=== PATIENT | female | born 1965 | race Caucasian/White ===

== ENCOUNTER 2016-12-26 07:13 | Emergency (ER) | payer SELFPAY ==
[2016-12-26 08:48] VITALS: BP 137/87
== END 2016-12-26 08:48 | disposition home or self-care (01) ==
LOC: ED 07:13
DX: J02.9 Acute pharyngitis, unspecified (principal); R03.0 Elevated blood-pressure reading, without diagnosis of hypertension; Z88.0 Allergy status to penicillin; Z72.89 Other problems related to lifestyle

== ENCOUNTER 2016-12-31 08:48 | Emergency (ER) | payer SELFPAY | END 2016-12-31 09:10 | disposition left against medical advice (07) | LOC: ED 08:48 | DX: Z53.21 Procedure and treatment not carried out due to patient leaving prior to being seen by health care provider (principal) ==

== ENCOUNTER 2017-01-01 00:49 | Emergency (ER) | payer SELFPAY ==
[2017-01-01 02:38] VITALS: BP 119/55
== END 2017-01-01 02:38 | disposition home or self-care (01) ==
LOC: ED 00:49
DX: S90.822A Blister (nonthermal), left foot, initial encounter (principal); S90.821A Blister (nonthermal), right foot, initial encounter; Z88.0 Allergy status to penicillin; X58.XXXA Exposure to other specified factors, initial encounter; Y93.89 Activity, other specified; Y99.8 Other external cause status; Y92.89 Other specified places as the place of occurrence of the external cause
CPT/HCPCS: J1885

== ENCOUNTER 2017-01-01 07:04 | Emergency (ER) | payer SELFPAY ==
[~2017-01-01] VITALS: Ht 167.6 cm; Wt 81.6 kg
[2017-01-01 08:03] LABS: CALCIUM 9.2 mg/dL (8.5-10.1); CARBON DIOXIDE 27.8 mmol/L (21-32); CHLORIDE SERUM 105 mmol/L (98-107); CREATININE SERUM 0.9 mg/dL (0.6-1.0); GFR1 > 60 mL/min; GLUCOSE SERUM 99 mg/dL (74-106); POTASSIUM SERUM 3.5 mmol/L (3.5-5.1); SODIUM SERUM 141 mmol/L (136-145)
[2017-01-01 08:07] LABS: ALKALINE PHOSPHATASE 96 U/L (46-116); ALT/SGPT 17 U/L (14-59); AST/SGOT 18 U/L (15-37); BILIRUBIN TOTAL 0.31 mg/dL (0.20-1.00); CHOLESTEROL 182 mg/dL (<200); LIPASE 515 IU/L (73-393); TOTAL PROTEIN, SERUM 7.2 g/dL (6.4-8.2); TRIGLYCERIDES 66 mg/dL (<150)
[2017-01-01 08:08] LABS: ALBUMIN 3.1 g/dL (3.4-5.0); CHOLESTEROL/HDL RATIO 1.5; HDL CHOLESTEROL 119 mg/dL (40-60)
[2017-01-01 08:10] LABS: PLATELET COUNT 190 x10^3mcL (130-400)
[2017-01-01 08:13] LABS: RED CELL DISTRIBUTION WIDTH 22.9 % (11.5-14.5)
[2017-01-01 08:14] LABS: FREE T4 0.96 ng/dL (0.76-1.46); FREE THYROXINE INDEX 2.8 ug/dL (1.4-4.5); T4(THYROXINE) 8.1 ug/dL (4.7-13.3)
[2017-01-01 08:17] LABS: T3 TOTAL 1.36 ng/mL
[2017-01-01 08:18] LABS: AMPHETAMINE QUAL UR NONE DETECTED (NEG <=1000)
[2017-01-01 08:20] LABS: UA SPECIFIC GRAVITY 1.025 (1.005-1.035); microscopic required? YES; urine erythrocyte 1+ (NEGATIVE)
[2017-01-01 11:41] LABS: BAND NEUTROPHIL 0 % (0-10); BASOPHIL 0 % (0-2); MONOCYTE 5 % (0-7); SEGMENTED NEUTROPHILS 75 % (37-75)
[2017-01-01 11:42] LABS: PLATELET MORPHOLOGY PLATELETS DECREASED; rbc morphology (normal/abnorm) ABNORMAL (NORMAL)
[2017-01-01 13:38] VITALS: BP 129/85
== END 2017-01-01 13:30 | disposition home or self-care (01) ==
LOC: ED 07:04
PROVIDERS: Specialist
DX: K85.90 Acute pancreatitis without necrosis or infection, unspecified (principal); F10.20 Alcohol dependence, uncomplicated; E66.9 Obesity, unspecified
CPT/HCPCS: 80307; 83880; 84439; G0480; J1885; Q0092

== ENCOUNTER 2017-01-10 23:13 | Emergency (ER) | payer OTHER | END 2017-01-11 01:30 | disposition other institution (70) | LOC: ED 23:13 | DX: Z02.89 Encounter for other administrative examinations (principal) ==

== ENCOUNTER 2017-01-10 23:13 | Emergency (ER) | payer SELFPAY ==
[2017-01-11 01:51] VITALS: BP 102/66
== END 2017-01-11 01:30 | disposition other institution (70) ==
LOC: ED 23:13
DX: S61.210A Laceration without foreign body of right index finger without damage to nail, initial encounter (principal); R03.0 Elevated blood-pressure reading, without diagnosis of hypertension; W25.XXXA Contact with sharp glass, initial encounter; Y93.89 Activity, other specified; Y92.89 Other specified places as the place of occurrence of the external cause; Y99.8 Other external cause status
CPT/HCPCS: 90715; J2001

== ENCOUNTER 2017-03-22 19:41 | Emergency (ER) | payer MEDICAID ==
[2017-03-22 21:30] LABS: BASOPHIL % 0.4 % (0-2); PLATELET COUNT 387 x10^3mcL (130-400)
[2017-03-22 21:37] LABS: CALCIUM 8.8 mg/dL (8.5-10.1); CARBON DIOXIDE 24.9 mmol/L (21-32); CREATININE SERUM 1.1 mg/dL (0.6-1.0)
[2017-03-22 21:40] LABS: BILIRUBIN TOTAL 0.2 mg/dL (0.20-1.00); TOTAL PROTEIN, SERUM 7.5 g/dL (6.4-8.2)
[2017-03-22 21:41] LABS: ALBUMIN 3.2 g/dL (3.4-5.0); RED CELL DISTRIBUTION WIDTH 25.2 % (11.5-14.5)
[2017-03-22 22:09] LABS: rbc morphology (normal/abnorm) ABNORMAL (NORMAL)
[2017-03-22 22:57] VITALS: BP 134/65
== END 2017-03-22 22:57 | disposition home or self-care (01) ==
LOC: ED 19:41
PROVIDERS: Emergency Medicine
DX: K52.9 Noninfective gastroenteritis and colitis, unspecified (principal)
CPT/HCPCS: 83880; J0780; J2405; J7030

== ENCOUNTER 2017-04-17 12:31 | Emergency (ER) | payer MEDICAID ==
[~2017-04-17] VITALS: Ht 167.6 cm; Wt 77.1 kg
[2017-04-17 15:07] LABS: BASOPHIL % 0.8 % (0-2)
[2017-04-17 15:13] LABS: CARBON DIOXIDE 24.6 mmol/L (21-32); CHLORIDE SERUM 103 mmol/L (98-107); CREATININE SERUM 0.9 mg/dL (0.6-1.0); GFR1 > 60 mL/min; GLUCOSE SERUM 101 mg/dL (74-106); POTASSIUM SERUM 3.9 mmol/L (3.5-5.1); SODIUM SERUM 141 mmol/L (136-145)
[2017-04-17 15:16] LABS: PLATELET COUNT 552 x10^3mcL (130-400); RED CELL DISTRIBUTION WIDTH 23.7 % (11.5-14.5)
[2017-04-17 15:17] LABS: ALBUMIN 3.7 g/dL (3.4-5.0); ALKALINE PHOSPHATASE 100 U/L (46-116); ALT/SGPT 30 U/L (14-59); AMYLASE 43 U/L (25-115); AST/SGOT 24 U/L (15-37); BILIRUBIN TOTAL 0.1 mg/dL (0.20-1.00); LIPASE 231 IU/L (73-393)
[2017-04-17 15:18] LABS: TOTAL PROTEIN, SERUM 8.3 g/dL (6.4-8.2)
[2017-04-17 15:20] LABS: UA SPECIFIC GRAVITY <=1.005 (1.005-1.035); microscopic required? YES; urine erythrocyte NEGATIVE (NEGATIVE)
[2017-04-17 16:03] LABS: AMPHETAMINE QUAL UR NONE DETECTED (NEG <=1000)
[2017-04-17] MEDS ORDERED: ABILIFY20 M1 PO (17:54)
[2017-04-17] MEDS ORDERED: PEPCID20 MG PO (17:56)
[2017-04-17] MEDS ORDERED: EPZICOM1 TAB (17:56)
[2017-04-17 18:23] VITALS: BP 112/72
== END 2017-04-17 18:24 | disposition home or self-care (01) ==
LOC: ED 12:31
PROVIDERS: Emergency Medicine
DX: R10.31 Right lower quadrant pain (principal); D25.9 Leiomyoma of uterus, unspecified; F10.20 Alcohol dependence, uncomplicated
CPT/HCPCS: 83880; G0480; J2405; J3010; J7030; Q9967

== ENCOUNTER 2017-04-30 02:02 | Inpatient (IN) | payer MEDICAID ==
[~2017-04-30] VITALS: Ht 167.6 cm; Wt 83.0 kg
[~2017-04-30 02:02] MED LIST: ABILIFY20 M1 PO; EPZICOM1 TAB; PEPCID20 MG PO
--- NOTE | 2017-04-30 02:30 | NUR ---
PT IN BED AWAKE ALERT, STS DOES NOT WANT TO GIVE URINE SAMPLE AT THIS TIME. WILL CHECK BACK
[2017-04-30 03:10] LABS: CALCIUM 8.5 mg/dL (8.5-10.1); CARBON DIOXIDE 21.1 mmol/L (21-32); CHLORIDE SERUM 108 mmol/L (98-107); GFR1 > 60 mL/min; GLUCOSE SERUM 105 mg/dL (74-106); POTASSIUM SERUM 3.7 mmol/L (3.5-5.1); SODIUM SERUM 142 mmol/L (136-145)
[2017-04-30 03:12] LABS: BASOPHIL % 0.2 % (0-2); PLATELET COUNT 223 x10^3mcL (130-400)
[2017-04-30 03:14] LABS: RED CELL DISTRIBUTION WIDTH 22.5 % (11.5-14.5)
[2017-04-30 03:15] LABS: ALKALINE PHOSPHATASE 110 U/L (46-116); ALT/SGPT 28 U/L (14-59); AST/SGOT 39 U/L (15-37); BILIRUBIN TOTAL 0.18 mg/dL (0.20-1.00)
[2017-04-30 03:17] LABS: ALBUMIN 3.1 g/dL (3.4-5.0)
--- NOTE | 2017-04-30 03:25 | NUR ---
PT BIBA: PER MEDIC PT CALLED SUICIDE HOTLINE AND REPORTED SHE WANTED TO KILL HERSELF. PD PLACED PT ON 5150 HOLD; FORM PLACED IN PT'S CHART. PER MEDIC PT STS SHE HAD BEEN DRINKING; BS WAS 112 ON SCENE. WHE ASKED IF PT WANTED TO HURT HERSELF, PT RESPONDED "I JUST HATE LIVING LIKE THIS, I HATE BEING HOMELESS, I JUST DON'T WANT TO WAKE UP, EVER." WHEN ASKED IF PT HAD A PLAN, PT SHOOK HEAD SIDE TO SIDE INDICATING NO. PT AWAKE ALERT, RESP E/U AT THIS TIME
[2017-04-30 03:42] LABS: rbc morphology (normal/abnorm) ABNORMAL (NORMAL)
--- NOTE | 2017-04-30 04:19 | NUR ---
PT IN BED IN POSITION OF COMFORT, RESP E/U, WITHIN FULL VIEW OF NURSES' STATION
--- NOTE | 2017-04-30 04:55 | NUR ---
PT AMBULATED TO RESTROOM WITH STEADY GAIT. PT AWAKE ALERT, RESP E/U, STS NO PAIN AT THIS TIME
[2017-04-30 05:21] LABS: AMPHETAMINE QUAL UR NONE DETECTED (NEG <=1000)
--- NOTE | 2017-04-30 06:20 | NUR ---
PT IN BED WITH EYES CLOSED, EVEN CHEST RISE AND FALL, NAD NOTED
--- NOTE | 2017-04-30 07:18 | NUR ---
REPORT TAKEN FROM SAMIA AGUILAR TO ASSUME CARE OF PT. UPON ENTERING THE ROOM PT IS SLEEPING ON GURNEY IN A POSITION OF COMFORT. PT OFFERED AM CARE AND BASIN PLACED AT BEDSIDE. DIET ORDERED FOR PT. PT STS NO FURTHER REQUEST AT THIS TIME. PT REMAINS ON CM WITH CALL LIGHT IN REACH. PT IN VIEW OF THE NURSES STATION WILL CONTINUE TO MONITOR.
--- NOTE | 2017-04-30 07:23 | NUR ---
PTS BELONGINGS TAKEN FROM BEDSIDE AND PLACED IN SHOWER ROOM.
--- NOTE | 2017-04-30 07:43 | NUR ---
BREAKFAST TRAY PLACED AT BEDSIDE.
--- NOTE | 2017-04-30 09:07 | NUR ---
PT IS SLEEPING ON GURNEY IN POSITON OF COMFORT. PT WOKEN UP AND ASKED IF SHE WOULD LIKE HER BREAKFAST, PT STS NOT AT THIS TIME. PT STS SHE WOULD LIKE SOMETHING FOR ALCOHOL WITHDRAWL. SHE IS FEELING SHAKY AND ANXIOUS. DR. GARCIA MADE AWARE. PT REMAINS ON CM WITH CALL LIGHT IN REACH AND IN VIEW OF THE NURSES STATION.
--- NOTE | 2017-04-30 09:43 | NUR ---
PT SLEEPING ON GURNEY IN A POSITION OF COMFORT. PT REMAINS ON MONITOR WITH CALL LIGHT IN REACH. PT IN VIEW OF THE NURSES STATION, WILL CONTINUE TO MONITOR
--- NOTE | 2017-04-30 11:25 | NUR ---
PT IS SITTING UP AT THIS TIME EATING BREAKFAST TRAY. PT REQUEST CUP OF WATER. PT PROVIDED WITH WATER. PT ON CM IN VIEW OF NURSING STATION. WILL CONTINUE TO MONITOR.
--- NOTE | 2017-04-30 11:53 | NUR ---
PT ATE ALL BREAKFAST. TRAY REMOVED. PT REMAINS ON CM MONITOR IN VIEW OF NURSING STATION. WILL CONTINUE TO MONITOR PT.
--- NOTE | 2017-04-30 12:49 | NUR ---
PT PROVIDED WITH LUNCH TRAY AT BEDSIDE.
--- NOTE | 2017-04-30 13:20 | NUR ---
TELE PSYCH SET UP IN ROOM FOR PT PER DR RADHA LYNN.
--- NOTE | 2017-04-30 13:21 | NUR ---
SPOKE TO PT IN REGARDS TO SI. PT STS SHE IS STILL EXPERIENCING SUICIDAL THOUGHTS. PT ASKED ABOUT A PLAN AND PT STS I WAS GOING TO JUST TAKE A BUNCH OF MY PILLS. PT STS IM SICK OF LIVING ON THE STREET, THE DIRT AND BEING SCARED AT NIGHT. PT REMAINS ON RESIDENTIAL PROGRAM DIRECTOR IN VIEW OF THE NURSES STATION WITH CALL LIGHT IN REACH.
--- NOTE | 2017-04-30 13:42 | NUR ---
SPOKE TO DR PIPER SPECIALIST CLERICAL PRODUCTION WORKER GAVE REPORT ON PT FOR TELE PSYCH.
--- NOTE | 2017-04-30 14:08 | NUR ---
PT AMBULATORY TO RESTROOM AND BACK WITHOUT INCIDENT.
[2017-04-30] MEDS ORDERED: MOTRIN (15:13)
--- NOTE | 2017-04-30 15:18 | NUR ---
PT IS RESTING ON GURNEY COMFORTABLY. PT ATE LUNCH. PT IS ON CM AND IN VIEW OF NURSING STATION. WILL CONTINUE TO MONITOR PT.
--- NOTE | 2017-04-30 15:24 | NUR ---
REPORT GIVEN TO ANDREA AGUILAR TO ASSUME CARE OF PT PTS PRIMARY NURSE
--- NOTE | 2017-04-30 16:00 | NUR ---
PT'S OWN MEDICATION WAS SENT TO PHARMACY FOR HOLD. MOTRIN 600 MG. 11 TABS
[2017-04-30 16:40] VITALS: BP 140/85
--- NOTE | 2017-04-30 16:49 | NUR ---
REC'D AAOX4, SPEECH CLEAR. C/O FATOUMATA FEET/TOE PAIN FROM WALKING. ON RA, NO SOB NOTED. AMBULATORY WITH STEADY GAIT. PT VERBALIZED SUICIDAL IDEATION, SITTER AT THE BEDSIDE. ATTACHED TELE 8. NSR. IV SITE WNL. ORIENTED TO ROOM AND SURROUNDINGS. CALL LIGHT WITHIN REACH, PROVIDED REPORT TO ANDERA AGUILAR FOR CONTINUITY OF CARE.
[2017-04-30 17:07] LABS: PHOSPHOROUS 3.4 mg/dL (2.5-4.9)
[2017-04-30 17:08] LABS: CHOLESTEROL/HDL RATIO 1.6
[2017-04-30 17:10] LABS: UA SPECIFIC GRAVITY >=1.030 (1.005-1.035); microscopic required? YES; urine erythrocyte NEGATIVE (NEGATIVE)
[2017-04-30 17:22] LABS: IRON 77 ug/dL (50-170); TOTAL IRON BINDING CAPACITY 368 ug/dL (250-450)
[2017-04-30 17:23] LABS: T3 TOTAL 0.98 ng/mL
[2017-04-30 17:26] LABS: RED BLOOD CELLS 3.55 M/mm3 (4.10-5.10)
[2017-04-30 17:28] LABS: FREE T4 0.86 ng/dL (0.76-1.46); T4(THYROXINE) 5.9 ug/dL (4.7-13.3)
--- NOTE | 2017-04-30 17:41 | NUR ---
PT UNDER CLOSE OBSERVATION. PRN PAIN MED GIVEN COVEAGE. WILL CONTINUE TO MONITOR
--- NOTE | 2017-04-30 18:54 | NUR ---
PT ON BED, EATING DINNER. NO COMPLAINT OF N/V. WILL CONTINUE TO MONITOR
--- NOTE | 2017-04-30 19:41 | NUR ---
SHIFT REASSESSMENT DONE.PATIENT ALERT,5150,SITTER AT BEDSIDE.SEEN BY DR WATKINS,PSYCH.BREATHING EASY.GEN WEAKNESS.NS AT 20 CC/ HOUR.IV SITE SECURED LAC.TELE 8 SR.REDNESS TO FEET NOTED ON ADMIT.VOIDING BUT C/O BURNING,ENCOURAGED INCREASE PO INTAKE,FLUID.SCD ORDERED.UDS + BENZO.,CALL LIGHT IN REACH.
--- NOTE | 2017-04-30 22:59 | NUR ---
POISON CONTROL CALLED,UPDATED REGARDING PATIENT LATEST.1 TO I SITTER FOR SAFETY.CALL LIGHT IN REACH.
--- NOTE | 2017-05-01 03:42 | NUR ---
CHECKED AT INTERVALS FOR NEEDS AND SAFETY.SLEEPING COMFORTABLY.NS AT 20 CC/ HOUR.
[2017-05-01 05:00] VITALS: BP 127/82
--- NOTE | 2017-05-01 05:59 | NUR ---
PATIENT UP RESTROOM,VOIDED.AM CARE GIVEN.ASSIST PRN.NS AT 20 CC/ HOUR.SITTER AT BEDSIDE FOR SAFETY.WILL CONTINUE PLAN OF CARE.CALL LIGHT IN REACH.
[2017-05-01 06:21] LABS: PLATELET COUNT 178 x10^3mcL (130-400)
[2017-05-01 06:40] LABS: CALCIUM 8.5 mg/dL (8.5-10.1); CARBON DIOXIDE 24.5 mmol/L (21-32); CHLORIDE SERUM 108 mmol/L (98-107); CREATININE SERUM 0.7 mg/dL (0.6-1.0); GFR1 > 60 mL/min; GLUCOSE SERUM 89 mg/dL (74-106); POTASSIUM SERUM 4.1 mmol/L (3.5-5.1); SODIUM SERUM 141 mmol/L (136-145)
[2017-05-01 07:10] LABS: BASOPHIL % 0 % (0-2); RED CELL DISTRIBUTION WIDTH 21.7 % (11.5-14.5)
[2017-05-01 08:06] LABS: rbc morphology (normal/abnorm) ABNORMAL (NORMAL)
--- NOTE | 2017-05-01 09:00 | NUR ---
PT ON BED, AWAKE, ALERT, AND ORIENTED. HAS NO COMPLAINT OF PAIN, SOB, OR DIZZINESS. RESPONDS WELL TO QUESTION AND ANSWER. CLEAR FATOUMATA LUNG FIELD, SYMMETRICAL CHEST EXPANSION AND UNLABORED. ACTIVE BOWEL SOUNDS NOTED. NON DISTENDED ABDOMEN. PT STATES SHE HAS PLANS TO HURT HERSELF IF SHE GOES BACK TO THE STREET. BUT HAS NO CURRENT IMMEDIATE PLANS AT THIS TIME. WILL CONTINUE TO MONITOR
[2017-05-01 09:30] VITALS: BP 120/84
--- NOTE | 2017-05-01 12:00 | NUR ---
PT'S ACCUCHECK SHOWED 102. NO COVERAGE NEEDED
[2017-05-01 14:00] VITALS: BP 130/87
--- NOTE | 2017-05-01 17:31 | NUR ---
PT ON BED, AWAKE, ALERT, AND ORIENTED. PT'S ACCUCHECK SHOWED 107.NO COVERAGE NEEDED
[2017-05-01 18:17] VITALS: BP 144/96
--- NOTE | 2017-05-01 19:50 | NUR ---
PT. AWAKE, ALERT, ORIENTED X4. ABLE TO FOLLOW COMMANDS. DENIES HEADACHE OR DIZZINESS. BREATH SOUNDS CLEAR THROUGHOUT LUNG ELY, RESP. EVEN, UNLABORED. NO SOB NOTED. DENIES CHESTPAIN OR DISCOMFORT. PT. COOPERATIVE W/ CARE. DENIES SUICIDAL IDEATION PRESENTLY. 1:1 SITTER AT BEDSIDE. ABD. SOFT AND ROUND, DENIES ABD. PAIN, DENIES NAUSEA. BLE FEET W/ SOME REDNESS. PEDAL PULSES STRONG FATOUMATA. IVF INFUSING WELL, SITE WNL. CALL LIGHT WITHIN REACH.
[2017-05-01 21:17] VITALS: BP 135/88
--- NOTE | 2017-05-02 02:26 | NUR ---
IV CATH ACCIDENTLY PUKED OUT, CATH INTACT, NEW 22 GAUGE INSERTED TO RT. HAND. GOOD BLOOD RETURN AND FLUSHING WELL.
[2017-05-02 10:00] VITALS: BP 138/87
--- NOTE | 2017-05-02 12:30 | NUR ---
PT'S ACCUCHECK SHOWED 109. NO COVERAGE NEEDED
[2017-05-02 14:03] VITALS: BP 145/92
[2017-05-02 15:13] VITALS: Ht 167.6 cm; Wt 83.0 kg
--- NOTE | 2017-05-02 17:28 | NUR ---
PT'S ACCUCHECK SHOWED 94. NO COVERAGE NEEDED. WILL CONTINUE TO MONITOR. PT DENIES SUICIDAL IDEATION
[2017-05-02 17:55] VITALS: BP 166/97
--- NOTE | 2017-05-02 20:00 | NUR ---
PT A/A/O X4. DENIES ANY SUICIDE IDEATION THUS FAR. PT STATED "IM NOT PLANNING HURTING MYSELF COZ THINGS ARE LOOKING UP." DENIES DIZZINESS AND HEADACHE. BREATH SOUNDS CLEAR. BREATHING EVEN AND UNLABORED ON ROOM AIR. DENIES CHEST PAIN AND PRESSURE. BOWEL SOUNDS ACTIVE. NO C/O N/V AND ABD PAIN. IV INTACT ON THE RIGHT HAND INFUSING WITH NS AT 20 ML/HR. MADE PT COMFORTABLE. PLACED CALL LIGHT WITH IN REACH. WILL CONTINUE TO MONITOR.
[2017-05-02 21:16] VITALS: BP 142/94
[2017-05-03] VITALS (8 sets, daily range): BP systolic 132–160; BP diastolic 88–110
--- NOTE | 2017-05-03 00:24 | NUR ---
PT RESTING WITH EYES CLOSED. NO DISTRESS AND DISCOMFORT NOTED. WILL CONTINUE TO MONITOR.
--- NOTE | 2017-05-03 05:25 | NUR ---
PT RESTING WITH EYES CLOSED. EASILY AROUSABLE WITH VERBAL STIMULI. NO SIGNIFICANT CHANGES NOTED. MADE PT COMFORTABLE. WILL ENDORSE TO THE AM NURSE ACCORDINGLY.
[2017-05-03 06:44] LABS: BASOPHIL % 0.1 % (0-2); PLATELET COUNT 192 x10^3mcL (130-400)
[2017-05-03 06:50] LABS: CALCIUM 8.8 mg/dL (8.5-10.1); CARBON DIOXIDE 27.5 mmol/L (21-32); CHLORIDE SERUM 103 mmol/L (98-107); CREATININE SERUM 0.7 mg/dL (0.6-1.0); GFR1 > 60 mL/min; GLUCOSE SERUM 90 mg/dL (74-106); POTASSIUM SERUM 4.1 mmol/L (3.5-5.1); SODIUM SERUM 139 mmol/L (136-145)
[2017-05-03 06:54] LABS: RED CELL DISTRIBUTION WIDTH 21.7 % (11.5-14.5); rbc morphology (normal/abnorm) ABNORMAL (NORMAL)
--- NOTE | 2017-05-03 07:14 | NUR ---
NEW IV ON THE LAC WILL ENDORSE TO THE AM NURSE ACCORDINGLY.
--- NOTE | 2017-05-03 07:35 | NUR ---
AAOX4 SITTING UP IN BED HAVING BREAKFAST, ABLE TO VERBALIZE NEEDS WITH CLEAR AND COHERENT SPEECH, DENIES SUICIDAL THOUGHTS, APPEARS CALM AND COLLECTED, ON TELE #8 SR ON THE MONITOR, DENIES ANY HEART RELATED PAIN OR DISCOMFORT, FATOUMATA GREAT TOES ERYTHEMATOUS, GUMARO, NIGHT RN REPORTS PODIATRY IS ON THE CASE, SITTER AT BEDSIDE, CALL LIGHT WITHIN REACH, WILL CONTINUE TO PROVIDE CARE.
--- NOTE | 2017-05-03 09:59 | NUR ---
ABLE TO TAKE ALL PO MEDS WITHOUT GI DISTRESS, CONTINUES TO FEEL DEPRESSED, HER HOME SITUATIION IS NOT STABLE BUT REPORTS ACTIVELY WORKING TO RESOLVE IT, SITTER AT BEDSIDE, CALL LIGHT WITHIN REACH, WILL CONTINUE TO PROVIDE CARE
--- NOTE | 2017-05-03 13:43 | NUR ---
ABLE TO TOLERATE LUNCH WITHOUT GI DISTRESS, WAS ABLE TO AMBULATE ON THE HALLWAY WITH PHYSICAL THERAPY, C/O INCREASED FORRESTER AFTER AMBULATION, RELIEVED BY REST. DR JARA AT BEDSIDE TO ASSESS PATIENT, WILL F/U WITH NEW OR CHANGED ORDERS.
--- NOTE | 2017-05-03 13:46 | NUR ---
SITTING UP IN BED, PATIENT C/O INCREASED ANXIETY, BP SLIGHTLY INCREASED, DOSE OF ATIVAN ADMINISTERED ORDERED, WILL CONTIUE TO MONITOR FOR SAFETY AND COMFORT.
--- NOTE | 2017-05-03 17:41 | NUR ---
SITTER REPORTS BP 160/10, UPON ASSESSMENT, PATIENT IS SITTING UP RIGHT IN BED, WATCHING TV, UNLABORED BREATHING, DENIES FORRESTER, DIZZINESS, VISUAL OR HEARING CHANGES, DOSE OF NITRO ADMINISTERED ORDERED, WILL REASSESS BP.
--- NOTE | 2017-05-03 18:05 | NUR ---
PATIENT SITTING UP IN BED, DENIES FORRESTER, DIZZINESS, PALPITATIONS, BP IS NOW 148/104 POST NITRO DOSE, CALL LIGHT WITHIN REACH.
--- NOTE | 2017-05-03 19:03 | NUR ---
PATIENT WILL BE TRANSFERRED TO [facility] [place] ON 05/04/17, HAS REMAINED CALM AND COOPERATIVE, DENIES S&S OF HYPERTENSION, DENIES SUICIDAL IDEATION, NO OTHER SIGNIFICANT CHANGES NOTED, CARE WILL BE ENDORSED TO NIGHT NURSE.
--- NOTE | 2017-05-03 20:00 | NUR ---
RECEIVED PT IN BED, WITH SITTER AT THE BEDSIDE FOR SAFETY. ALERT AND ORIENTED. ABLE TO VERBALIZE NEEDS. DENIES HEADACHE/DIZZINESS. REMAINS ON 5150 HOLD FOR SUICIDAL IDEATION. DENIES ANY SUICIDAL IDEATION AT THIS TIME. RESP. EVEN AND UNLABORED. ON ROOM AIR, NO DISTRESS NOTED. AFEBRILE AND VITAL SIGNS STABLE. SR ON THE MONITOR, DENIES CHEST PAIN OR ANY DISCOMFORT AT THIS TIME. HL INTACT AND PATENT. ABLE TO REPOSITION SELF IN BED. REDNESS TO GREAT TOES NOTED. NEEDS MIN .ASSIST. TO AMBULATE TO THE BATHROOM.VOIDINGF FREELY. CALL LIGHT WITHIN REACH. WILL CONTINUE TO MONITOR.
--- NOTE | 2017-05-03 21:45 | NUR ---
COMPLAINED OF BACK AND BILAT. TOES PAIN, 5/10, REQUESTING FOR PAIN MED, MEDICATED WITH NORCO 1TAB PO ORDERED. WILL CONTINUE TO MONITOR.
--- NOTE | 2017-05-03 22:39 | NUR ---
EYES CLOSED, APPEARS COMFORTABLE. EASILY AROUSABLE. WILL CONTINUE TO MONITOR.
--- NOTE | 2017-05-04 04:44 | NUR ---
APPEARS ASLEEP, EASILY AROUSABLE. NO DISTRESS NOTED. SITTER AT THE BEDSIDE. WILL CONTINUE TO MONITOR.
[2017-05-04 05:53] VITALS: BP 103/73
--- NOTE | 2017-05-04 05:57 | NUR ---
SLEPT MOST OF THE NIGHT. DENIES ANY SUICIDAL IDEATION AT THIS TIME. AFEBRILE AND VITAL SIGNS STABLE. DUE MEDS GIVEN ORDERED, JORGE. WELL. RESP. EVEN AND UNLABORED. NO DISTRESS NOTED. KEPT COMFORTABLE. SITTER AT THE BEDSIDE FOR SAFETY. UP TO THE BATHROOM WITH MIN. ASSIST. VOIDING FREELY. WILL CONTINUE TO MONITOR.
--- NOTE | 2017-05-04 07:20 | NUR ---
Pt. AAOX4, SITTER AT BEDSIDE. RESPIRATIONS EVEN AND UNLABORED. DENIES PAIN/DISCOMFORT AT THIS TIME. Pt. REPORTED FEELING ANXIOUS AT TIMES. REDNESS WITH SWELLING NOTED AT BILATERAL GREAT TOE TIRE FABRIC IMPREGNATING RANGE TENDER SKIN INTACT. TELE IN PLACE HR 105. IV SITE AT LEFT AC SALINE LOCKED. BED LOW/LOCKED. CALL LIGHT IN REACH.
--- NOTE | 2017-05-04 08:30 | NUR ---
MADE ROUNDS WITH DR. CAST AND MEDICINE TEAM, Pt. POSSIBLE DISCHARGE TODAY WITH [facility] AND AGREED WITH PLAN OF CARE.
[2017-05-04 08:36] VITALS: BP 107/74
--- NOTE | 2017-05-04 09:07 | NUR ---
Pt. C/O BACK PAIN 5/10 SCALE, NORCO GIVEN WILL CONTINUE TO MONITOR.
--- NOTE | 2017-05-04 09:30 | NUR ---
Pt. AMBULATING HALLWAYS ACCOMPANIED BY SITTER, STEADY GAIT NOTED.
[2017-05-04] MEDS ORDERED: KEF500 PO (09:39)
[2017-05-04] MEDS ORDERED: NIC14 TD (09:41)
[2017-05-04] MEDS ORDERED: ZES10 PO (09:41)
[2017-05-04] MEDS ORDERED: FLUOXETINE HYDR20 M2 PO (09:45)
[2017-05-04] MEDS ORDERED: LAC PO (09:46)
--- NOTE | 2017-05-04 10:53 | NUR ---
Pt. VERBALIZED RELIEF POST NORCO.
--- NOTE | 2017-05-04 13:35 | NUR ---
PATIENT MADE AWARE OF WILL BE DISCHARGED TO [facility] IN [place] TODAY, SHE IS IN AGRREMENT TO GO THERE, SHE DENIES ANY SUCIDAL THOUGHT/IDEATION, CALLED AND UPDATED PATIENT'S STATUS TO DR. WATKINS, PER DR. WATKINS, PATIENT IS SAFE TO TRANSFER TO [facility]ACE VIA [facility]AX[facility] OR PRIVATE AUTO SINCE WE HAVE FOUND THE PLACE FOR ETOH TREATMENT PROGRNE FOR THIS PATIENT. WILL CONTACT PATIENT'S FAMILY FIRST FOR TRANSPORTATION.
[2017-05-04] MEDS ORDERED: ATI1 PO (14:46)
--- NOTE | 2017-05-04 15:13 | NUR ---
Pt. AAOX4 ALL RX AND DISCHARGE INSTRUCTIONS EXPLAINED TO Pt. AND VERBALIZED UNDERSTANDING. Pt. INSTRUCTED TO GO TO APPOINTMENT ON 05/07/17 WITH [facility] AND VERBALIZED UNDERSTANDING. AWAITING FOR Pt. BROTHER IN LAW TO TRANSPORT Pt. TO [facility].
--- NOTE | 2017-05-04 15:53 | NUR ---
Pt. AAOX4. RESPIRATIONS EVEN AND UNLABORED. DENIES PAIN/DISCOMFORT. DENIES SUICIDAL IDEATIONS AT THIS TIME. NO DISTRESS NOTED. IV AT LEFT AC REMOVED WITH CATH INTACT DSG APPLIED, NO BLEEDING NOTED. BILATERAL GREAT TOE STILL WITH REDNESS AND SWELLING NOTED, Pt. INSTRUCTED TO KEEP CLEAN AND DRY. Pt. VERBALIZED UNDERSTANDING AND PHOTGRAPHIC DOCUMENTATION TAKEN. Pt. LEFT WITH ALL BELONGINGS TRANSPORTED BY Pt. [id number] VIA PRIVATE VEHICLE.
== END 2017-05-04 16:00 | disposition home or self-care (01) | DRG 812 ==
LOC: ED 02:02 → MU 15:04 → DU 15:04 → MU 05-04 08:57
PROVIDERS: Emergency Medicine; Family Medicine; ADMIT Family Medicine
DX: T43.221A Poisoning by selective serotonin reuptake inhibitors, accidental (unintentional), initial encounter (principal); G92 Toxic encephalopathy; E44.0 Moderate protein-calorie malnutrition; N39.0 Urinary tract infection, site not specified; F33.2 Major depressive disorder, recurrent severe without psychotic features; F43.10 Post-traumatic stress disorder, unspecified; F41.1 Generalized anxiety disorder; L03.032 Cellulitis of left toe; L03.031 Cellulitis of right toe; L60.0 Ingrowing nail; M54.5 Low back pain; G89.29 Other chronic pain; E03.9 Hypothyroidism, unspecified; F10.129 Alcohol abuse with intoxication, unspecified; F17.220 Nicotine dependence, chewing tobacco, uncomplicated; Z91.128 Patient's intentional underdosing of medication regimen for other reason; Z68.29 Body mass index [BMI] 29.0-29.9, adult; Z59.0 Homelessness; Z56.0 Unemployment, unspecified; Y90.1 Blood alcohol level of 20-39 mg/100 ml; Y92.89 Other specified places as the place of occurrence of the external cause
CPT/HCPCS: 82962; 83880; 84439; G0480; J2060; J7030; Q0092

== ENCOUNTER 2017-06-19 20:30 | Emergency (ER) | payer MEDICAID ==
[~2017-06-19 20:30] MED LIST changes: +ATI1 PO; +FLUOXETINE HYDR20 M2 PO; +KEF500 PO; +LAC PO; +MOTRIN; +NIC14 TD; +ZES10 PO
[2017-06-20 01:58] VITALS: BP 145/92
== END 2017-06-20 01:58 | disposition home or self-care (01) ==
LOC: ED 20:30
DX: S00.03XA Contusion of scalp, initial encounter (principal); F10.20 Alcohol dependence, uncomplicated; Z88.0 Allergy status to penicillin; Z86.2 Personal history of diseases of the blood and blood-forming organs and certain disorders involving the immune mechanism; Z85.42 Personal history of malignant neoplasm of other parts of uterus; Z90.89 Acquired absence of other organs; W17.89XA Other fall from one level to another, initial encounter; Y93.89 Activity, other specified; Y92.89 Other specified places as the place of occurrence of the external cause; Y99.8 Other external cause status

== ENCOUNTER 2017-06-20 01:18 | Emergency (ER) | payer MEDICAID ==
[2017-06-20 04:42] VITALS: BP 146/87
== END 2017-06-20 04:43 | disposition home or self-care (01) ==
LOC: ED 01:18
DX: S29.012A Strain of muscle and tendon of back wall of thorax, initial encounter (principal); S39.012A Strain of muscle, fascia and tendon of lower back, initial encounter; S30.860A Insect bite (nonvenomous) of lower back and pelvis, initial encounter; Z88.0 Allergy status to penicillin; Z86.2 Personal history of diseases of the blood and blood-forming organs and certain disorders involving the immune mechanism; Z90.89 Acquired absence of other organs; W57.XXXA Bitten or stung by nonvenomous insect and other nonvenomous arthropods, initial encounter; Y93.89 Activity, other specified; Y92.89 Other specified places as the place of occurrence of the external cause; Y99.8 Other external cause status
CPT/HCPCS: 72072; J1885

== ENCOUNTER 2017-06-28 20:56 | Emergency (ER) | payer MEDICAID | END 2017-06-28 21:11 | disposition left against medical advice (07) | LOC: ED 20:56 | DX: Z53.21 Procedure and treatment not carried out due to patient leaving prior to being seen by health care provider (principal) ==

== ENCOUNTER 2019-03-30 13:47 | Inpatient (IN) | payer MEDICAID ==
[~2019-03-30] VITALS: Ht 167.6 cm; Wt 95.7 kg
[2019-03-30 13:56] VITALS: Ht 167.6 cm; Wt 95.7 kg
--- NOTE | 2019-03-30 14:03 | NUR ---
BROUGHT IN BY AMBULANCE. PT HERE FOR ALCOHOLISM, PT ADMITS TO DRINKING 100 OZ OF BEER TODAY. PT DENIES ANY PAIN, NO CP, NO SOB, STATES SHE IS HAVING WITHDRAWALS AND SHE WANTS HELP. PT OX4, ADMITS TO BEING HOMELESS FOR "A COUPLE OF YEARS".
[2019-03-30 14:41] LABS: microscopic required? NO
[2019-03-30 14:47] LABS: BASOPHIL % 0.3 % (0-2); PLATELET COUNT 256 x10^3mcL (130-400)
--- NOTE | 2019-03-30 14:53 | NUR ---
COLT PROVIDED, DIABETIC DIET ORDERED.
[2019-03-30 14:54] LABS: RED CELL DISTRIBUTION WIDTH 17.8 % (11.5-14.5)
[2019-03-30 15:03] LABS: UA SPECIFIC GRAVITY <=1.005 (1.005-1.035); urine erythrocyte NEGATIVE (NEGATIVE)
[2019-03-30 15:05] LABS: CALCIUM 9.1 mg/dL (8.5-10.1); CARBON DIOXIDE 23.9 mmol/L (21-32); CHLORIDE SERUM 107 mmol/L (98-107); CREATININE SERUM 0.9 mg/dL (0.6-1.0); GFR1 > 60 mL/min; GLUCOSE SERUM 94 mg/dL (74-106); POTASSIUM SERUM 4.3 mmol/L (3.5-5.1); SODIUM SERUM 143 mmol/L (136-145)
[2019-03-30 15:08] LABS: ALKALINE PHOSPHATASE 112 U/L (46-116); ALT/SGPT 20 U/L (14-59); AST/SGOT 21 U/L (15-37); BILIRUBIN TOTAL 0.23 mg/dL (0.20-1.00); TOTAL PROTEIN, SERUM 7.2 g/dL (6.4-8.2)
[2019-03-30 15:09] LABS: ALBUMIN 3.2 g/dL (3.4-5.0)
--- NOTE | 2019-03-30 16:13 | NUR ---
SLEEPING, EASILY AROUSABLE, NO SIGNS OF DISTRESS NOTED.
--- NOTE | 2019-03-30 18:30 | NUR ---
PT SITTING IN BED, EATING DINNER, NO SIGNS OF DISTRESS.
--- NOTE | 2019-03-30 18:45 | NUR ---
PT SIGNED HOMELESS WAIVER. WAS ABOUT TO GIVE PT ACI AND BUS PASS. PT SUDDENLY VERBALIZED THAT SHE WANTS TO . PT STATES "EVERYTIME I SOBER UP, I WANT TO KILL MYSELF". PT STATES SHE IS TIRED OF BEING DRUNK AND HOMELESS THAT SHE WANTS JUST TO SLEEP AND . DR. ENCISO INFORMED AND SPOKE TO PT. TELE PSYCH CALLED.
--- NOTE | 2019-03-30 18:57 | NUR ---
ALL BELONGINGS OBTAINED AND SECURED AND LABELED. MOVED TO BED 8. AWAITING FOR TELE PSYCH.
--- NOTE | 2019-03-30 19:04 | NUR ---
AWAITING FOR TELE PSYCH. PT SITTING IN BED, AWAKE, ALERT, OX4, NO SIGNS OF ACUTE DISTRESS. REPORT GIVEN TO [facility] SHIFT NURSE TIGRE.
--- NOTE | 2019-03-30 19:11 | NUR ---
PT IS SITTING UP IN BED. BREATHING IS E/U ON RA. NO S/S OF ACUTE DISTRESS NOTED. TELE-PSYCH MONITOR AT BEDSIDE. BED IN LOW POSITION. PT IN VIEW OF THE NURSES STATION. WILL CONT TO MONITOR
--- NOTE | 2019-03-30 19:30 | NUR ---
TELE-PSYCH REP SPEAKING TO THE PT AT THIS TIME
--- NOTE | 2019-03-30 19:30 | NUR ---
SPOKE TO TELE-PSYCH AUTOMOTIVE WELDER VIA TELEPHONE. UPDATED ON PT'S STATUS.
--- NOTE | 2019-03-30 20:12 | NUR ---
SPOKE TO DR. MOLINA. RECOMMENDED FOR PT TO BE HOSPITALIZED IN PATIENT PSYCH FOR SAFETY AND STABILIZATION. DIFFER TO IN PATIENT UNIT FOR STANDING MEDICATION. WILL LET MD AWARE OF RECOMMENDATION.
--- NOTE | 2019-03-30 20:56 | NUR ---
PT PLACED ON 0188
--- NOTE | 2019-03-30 21:44 | NUR ---
PT IS SITTING UP IN BED. NO S/S OF ACUTE DISTRESS NOTED. BREATHING IS E/U, 02 SATURATION AT THIS TIME 97%. PT IN VIEW OF THE NURSES STATION. BED IN LOW POSITION. WILL CONT TO MONITOR
--- NOTE | 2019-03-30 22:43 | NUR ---
PT IN VIEW OF THE NURSES STATION. NO S/S OF DISTRESS NOTED. BED IN LOW POSITION. WILL CONT TO MONITOR
--- NOTE | 2019-03-30 23:55 | NUR ---
PT REQUESTING TO USE THE RESTROOM. PT DISCONNECTED FROM GRANT WRITER AND ASSISTED TO RESTROOM
--- NOTE | 2019-03-31 01:17 | NUR ---
PT IS SLEEPING, AROUSABLE. NO RISE AND FALL OF CHEST NOTED. PT IN VIEW OF THE NURSES STATION. BED IN LOW POSITION. CALL LIGHT IN REACH. WILL CONT TO MONITOR
--- NOTE | 2019-03-31 02:03 | NUR ---
PT IS AROUSABLE, NO S/S OF DISTRESS NOTED. WILL CONT TO MONITOR
--- NOTE | 2019-03-31 03:48 | NUR ---
PT IS RESTING. PT IN VIEW OF THE NURSES STATION. WILL CONT TO MONITOR
--- NOTE | 2019-03-31 04:30 | NUR ---
PT IS AWAKE/ALERT, SITTING UP IN BED. NO S/S OF DISTRESS NOTED. PT IN VIEW OF THE NURSES STATION. BED IN LOW POSITION. WILL CONT TO MONITOR
--- NOTE | 2019-03-31 05:32 | NUR ---
PT IN VIEW OF THE NURSES STATION WITH NO S/S OF DISTRESS NOTED. WILL CONT TO MONITOR
--- NOTE | 2019-03-31 06:26 | NUR ---
PT IS SLEEPING, EASILY AROUSABLE. BREATHING IS E/U ON RA. NO S/S OF ACUTE DISTRESS NOTED. PT IN VIEW OF THE NURSES STATION. WILL CONT TO MONITOR
--- NOTE | 2019-03-31 07:08 | NUR ---
REPORT GIVEN TO EDDA AGUILAR FOR CONTINUITY OF CARE. ALL QUESTIONS/CONCERNS ADDRESSED AT THIS TIME. ENDORSING ALL CARE
--- NOTE | 2019-03-31 07:51 | NUR ---
PTS BREAKFAST TRAY PROVIDED TO PT. PT SITTING UP AND REPORTS NAUSEA, DR MORA INFORMED.
--- NOTE | 2019-03-31 08:04 | NUR ---
PATIENT RESTING AT BEDSIDE IN NAD. BREATHING E/U, BILATERAL CHEST RISE. BED AT LOWEST POSITION. LIGHTS DIMMED AND BLANKETS PROVIDED TO PROMOTE PATIENT COMFORT. CURTAINS LEFT WIDE OPEN AND PATIENT CAN BE SEEN AT BEDSIDE FROM NURSES STATION
--- NOTE | 2019-03-31 08:35 | NUR ---
Packet faxed to [facility] for review.
--- NOTE | 2019-03-31 08:49 | NUR ---
Packet faxed to [facility] for review.
--- NOTE | 2019-03-31 09:07 | NUR ---
PATIENT RESTING AT BEDSIDE IN NAD. BREATHING E/U, BILATERAL CHEST RISE. BED AT LOWEST LEVEL. LIGHTS DIMMED TO PROMOTE PATIENT COMFORT. CURTAINS WIDE OPEN, PATIENT CAN BE SEEN BY NURSE AT STATION.
--- NOTE | 2019-03-31 09:20 | NUR ---
Packet faxed to [facility] for review.
--- NOTE | 2019-03-31 09:20 | NUR ---
PATIENT IS COMPLAINING OF NAUSEA. WILL NOTIFY
--- NOTE | 2019-03-31 09:24 | NUR ---
PER MD, HAVE PATIENT CONSUME FOOD AND DRINK TO REDUCE NAUSEA
--- NOTE | 2019-03-31 09:38 | NUR ---
Packet fax[facility] to Vir[facility]
--- NOTE | 2019-03-31 09:55 | NUR ---
Called [facility], s/w intake. No beds at this time.
--- NOTE | 2019-03-31 10:01 | NUR ---
Called [facility]. No behavioral health beds at this time.
--- NOTE | 2019-03-31 10:05 | NUR ---
Called [facility] s/[facility]. No beds.
--- NOTE | 2019-03-31 10:15 | NUR ---
PT RESTING AT BEDSIDE IN NAD. AWAITING TELE PSYCH CONSULT
--- NOTE | 2019-03-31 10:19 | NUR ---
Packet faxed to Amalia at [facility] for review.
--- NOTE | 2019-03-31 10:53 | NUR ---
PT RESTING AT BEDSIDE IN NAD. BREATHING E/U, BILATERAL CHEST RISE. CURTAINS WIDE OPEN AND PATIENT CAN BE VISUALIZED BY NURSES AT STATION
--- NOTE | 2019-03-31 11:56 | NUR ---
PT RESTING AT BEDSIDE IN NAD
--- NOTE | 2019-03-31 14:31 | NUR ---
PT AAOX4, CLEAR SPEECH, COOPERATIVE, RESP E/U, IN NO ACUTE DISTRESS.
[2019-03-31] MEDS ORDERED: GABAPENTIN100 M2 (15:03)
[2019-03-31] MEDS ORDERED: ATIVAN0.5 M1 (15:04)
--- NOTE | 2019-03-31 15:16 | NUR ---
PATIENT SITTING UP AT BEDSIDE IN NAD. LIGHTS DIMMED TO PROMOTE PATIENT COMFORT. PATIENT IN NAD. RESP E/U, BILATERAL CHEST RISE. CURTAINS ARE DRAWN, PATIENT CAN BE VISUALIZED BY NURSES AT STATION
--- NOTE | 2019-03-31 15:43 | NUR ---
REPORT OFF TO LAUREN PENNINGTON. PER KEE PENNINGTON AVAILABLE, AND THE ROOM NEEDS TO BE CLEANED BEFORE SENDING PATIENT TO ROOM
[2019-03-31 15:59] LABS: PHOSPHOROUS 4.1 mg/dL (2.5-4.9)
--- NOTE | 2019-03-31 16:00 | NUR ---
RECEIVED PT FROM ER, PT ADMIT FOR ETOH ABUSE, SUICIDAL IDEA, 5150, PT IS A/O X4, VERBAL RESPONSIVE, ABLE TO TELL WHAT SHE NEEDS. PT STATE SHE STILL HAS SUICIDAL IDEA AND ALSO HAS PLAN. PT STATE SHE WANT TO LOCK HER SELF IN THE TRUCK AND SEAL ALL WINDOW AND SURFER HERSELF IN CO2. PT IS CURRENTLY CALM AND COOPERATED AT THIS MOMENT. [facility]OM IS CLOSE TO NURSE STATION. PT DENY ANY RESPIRATORY DISTRESS OR CHEST PAIN, BOWEL SOUND PRESENT ALL 4 QUADRANTS, NO DISTENTION, PEDAL PULSE PRESENT BOTH FEET, +1 RLE, TRACE LLE. IV AT RIGHT HAND, NO LEAKING, NO INFILTRAITON. SKIN IS INTACT. ALL ADLS ASSIST, ALL NEED MET, CALL LIGHT IN REACH, WILL CONTINUE TO MONITOR.
[2019-03-31 16:16] VITALS: BP 129/87
--- NOTE | 2019-03-31 16:48 | NUR ---
ASSUMED CARE OF PATIENT. NO COMPLAINTS OF VIKAS CIRA THIS MOMENT. IVF INITIATED ORDERED.
--- NOTE | 2019-03-31 17:06 | NUR ---
PAGED FOR SHOWER ORDER.
--- NOTE | 2019-03-31 18:13 | NUR ---
PATIENT SEEN WITH SITTER AT BEDSIDE. NO NEW ISSUES.
--- NOTE | 2019-03-31 18:45 | NUR ---
PATIENT SEEN WITH 1;1 SITTER. NO COMPLAINTS OF PAIN OR DISCOMFORT. IV REMAINS PATENT AND INTACT. WILL ENDORSE CARE TO ONCOMING RN.
--- NOTE | 2019-03-31 20:00 | NUR ---
PT A/A/O X4. PT ADMITS TO HAVING THOUGHS OF KILLING HERSELF THUS FAR. DENIES DIZZINESS AND HEADACHE. BREATH SOUNDS CLEAR. BREATHING EVEN AND UNLABORED ON ROOM AIR. DENIES CHEST PAIN AND PRESSURE. BOWEL SOUNDS ACTIVE. NO C/O N/V AND ABD PAIN THUS FAR. TRACE EDEMA NOTED ON THE RLE. IV INTACT ON THE RIGHT HAND INFUSING WITH NS AT 100 ML/HR. MADE PT COMFORTABLE. PLACED CALL LIGHT WITH IN REACH. WILL CONTINUE TO MONITOR.
--- NOTE | 2019-03-31 20:24 | NUR ---
Follow up calls were made to contracted psychiatric facilities. Still no update on bed placement, no beds available for patient at this time. [facility] BRUNILDA, spoke with Shannan, packet is still on file. [facility], spoke with Rhea, packet is on file. [facility]th[facility], spoke with Santosh, packet is on file. [facility], spoke with intake, they do not accept [place] patients. [facility], spoke with Srinivas. [facility], spoke with Tammy. [facility], spoke with Roscoe. [facility], spoke with intake, patient is out of area and too far. Call Center will update the unit if/when a bed becomes available.
[2019-03-31 21:30] VITALS: BP 134/84
--- NOTE | 2019-04-01 00:57 | NUR ---
PT RESTING WITH EYES CLOSED. NO DISTRESS AND DISCOMFORT NOTED. WILL CONTINUE TO MONITOR.
[2019-04-01 04:58] VITALS: BP 117/78
[2019-04-01 06:15] LABS: BASOPHIL % 0.1 % (0-2); PLATELET COUNT 186 x10^3mcL (130-400)
[2019-04-01 06:46] LABS: CALCIUM 8.4 mg/dL (8.5-10.1); CARBON DIOXIDE 26.1 mmol/L (21-32); CHLORIDE SERUM 106 mmol/L (98-107); CREATININE SERUM 0.9 mg/dL (0.6-1.0); GFR1 > 60 mL/min; GLUCOSE SERUM 106 mg/dL (74-106); POTASSIUM SERUM 4.1 mmol/L (3.5-5.1); SODIUM SERUM 141 mmol/L (136-145)
--- NOTE | 2019-04-01 07:01 | NUR ---
PT QUIET AND RESTING. ADMIT TO HAVE THOUGHTS OF KILLING HERSELF. IV INTACT AND INFUSING ORDERED. MADE PT COMFORTABLE. WILL ENDORSE TO THE AM NURSE ACCORDINGLY.
--- NOTE | 2019-04-01 07:23 | NUR ---
ASSUMED CARE OF PATIENT. SEEN RESTING IN BED WITH EQUAL AND UNLABORED RESPIRATIONS. NO APPARENT S/SX OF DISTRESS OR DISCOMFORT NOTED. IV ON LEFT HAND PATENT AND INFUSING 100 ML/HR NS. NO REDNESS OR SWELLING NOTED. 1:1 SITTER REMAINS AT BEDSIDE. WILL CONTINUE TO MONITOR.
--- NOTE | 2019-04-01 08:55 | NUR ---
PATIENT SEEN SLEEPING IN BED, EASILY AROUSABLE. SITTER AT BEDSIDE. NO NEW ISSUES.
[2019-04-01 10:26] VITALS: BP 118/76
--- NOTE | 2019-04-01 13:14 | NUR ---
PATIENT SEEN RESTING IN BED. NO COMPLAINTS OF PAIN OR DISCOMFORT. SITTER AT BEDSIDE. MAKES NEEDS KNOWN. NO NEW ISSUES.
--- NOTE | 2019-04-01 14:52 | NUR ---
PATIENT SEEN RESTING IN ROOM WITH EQUAL AND UNLABORED RESPIRATIONS. IV REMAINS PATENT. SITTER AT BEDSIDE. NEW 5150 SIGNED BY AT 1400. NO NEW ISSUES.
--- NOTE | 2019-04-01 16:29 | NUR ---
CALL FROM [facility] FROM [facility]. UPDATED ON CURRENT PATIENT SITUATION.
[2019-04-01 17:46] VITALS: BP 128/81
--- NOTE | 2019-04-01 18:42 | NUR ---
PATIENT SEEN RESTING IN ROOM WITH NO COMPLAINTS OF PAIN OR DISCOMFORT. IV ON RIGHT HAND PATENT AND INFUSING 100ML/HR NS. 1:1 SITTER AT BEDSIDE. WILL ENDORSE CARE TO ONCOMING RN.
--- NOTE | 2019-04-01 19:30 | NUR ---
PT IS A/O X4. SZ PRECAUTION IN PLACE. MED SURG. DENIES ANY CHEST PAIN OR PRESSURE. PULSES ARE PRESENT. NO EDEMA NOTED. LUNGS CLEAR IN ALL FEILDS. ON RA, DENIES ANY SOB. EQUAL CHEST RISE AND FALL. BOWEL SOUNDS PRESENT X4. DENIES ANY ABD DISTRESS. SKIN HAS A RED TINGE, PER PT SHE IS HOMELESS AND IS EXPOSED TO THE SUN A LOT. DENIES ANY PAIN. IV ON RH INTACT AND PATENT. NO SIGN OF IRRITATION OR INFILTRATION. PT STILL VOICE SHE IS SUICIDAL. WHEN ASKED ABOUT IF SHE HAS A PLAN SHE AVOIDS EYE CONTACT AND MUMMBLED. WHEN ASKED TO REPEAT SHE MUMBLES AGAIN THEN STAYS QUITE. SITTER IS AT BEDSIDE FOR PT SAFETY. BED IS AT LOWEST SETTING. CALL LIGHT WITHIN REACH. ROOM IS MADE SAFE. WILL CONTINUE TO [facility].
[2019-04-01 21:13] VITALS: BP 121/72
--- NOTE | 2019-04-02 01:47 | NUR ---
PT RESTING IN BED WITH BOTH EYES CLOSED. BREATHING EVEN AND UNALBORED. NO SIGN OF DISTRESS NOTED. SITTER AT BEDSIDE. BED IS AT LOWESET SETTING. CALL LIGHT WITHIN REACH. WILL CONTINUE TO MONTIOR.
[2019-04-02 05:46] VITALS: BP 133/84
--- NOTE | 2019-04-02 06:39 | NUR ---
PT IS RESTING IN BED WITH BOTH EYES CLOSED. BREATHING EVEN AND UNLABORED. NO SIGN OF DISTRESS NOTED. SITTER AT BEDSIDE. NO ACUTE EVENT OCCURED DURING SHIFT. WILL ENDORSE TO AM NURSE.
--- NOTE | 2019-04-02 07:05 | NUR ---
ASSUMED CARE OF PATIENT. SEEN SLEEPING THIS MORNING. NO APPARENT DISTRESS OR DISCOMFORT NOTED. IV ON RIGHT HAND PATENT AND INFUSING 100ML/HR NS. SITTER REMAINING ON BEDSIDE PER 5150. WILL CONTINUE TO MONITOR.
[2019-04-02 08:10] VITALS: BP 126/64
--- NOTE | 2019-04-02 08:21 | NUR ---
CONTINUING TO ENDORSE SI WITH PLAN THIS MORNING. SITTER REMAINS AT BEDSIDE PER 5150
--- NOTE | 2019-04-02 11:15 | NUR ---
PATIENT SEEN RESTING IN BED WITH NO COMPLAINTS OF PAIN OR DISCOMFORT. SITTER REMAINS AT BEDSIDE. NO NEW ISSUES.
--- NOTE | 2019-04-02 14:01 | NUR ---
PATIENT SEEN RESTING IN BED WATCHING TV. NO APPARENT DISTRESS OR DISCOMFORT NOTED. SITTER AT BEDSIDE. NO NEW ISSUES.
--- NOTE | 2019-04-02 15:34 | NUR ---
PATIENT COMPLAINING OF INCREASED ANXIETY AND AGITATION. PRN ATIVAN PROVIDED. PATIENT CONTINUES TO ENDORSE SI WITH PLAN. SITTER REMAINING AT BEDSIDE. SUICIDE PRECAUTIONS IN PLACE.
--- NOTE | 2019-04-02 17:09 | NUR ---
PATIENT REPORTING DECREASED ANXIETY WITH ATIVAN. STATES SHE WILL DISTRACT HERSELF WITH TV AND IT MAKES HER FEEL BETTER.
[2019-04-02 17:33] VITALS: BP 126/85
--- NOTE | 2019-04-02 18:46 | NUR ---
PATIENT SEEN RESTING IN BED WATCHING TV. NO COMPLAINTS OF PAIN OR DISCOMFORT. REPORTS DECREASED ANXIETY. IV ON RIGHT HAND PATENT AND INFUSING 100ML/HR NS. SITTER REMAINS AT BEDSIDE. WILL ENDORSE CARE TO ONCOMING RN.
--- NOTE | 2019-04-02 19:49 | NUR ---
RECEIVED REPORT FROM AM NURSE. PT IS ALERT AND ORIENTED X4. PUPILS REACTIVE TO LIGHT. PT IS BREATHING E/U ON RA. LUNG SOUNDS CLEAR TO BILATERAL UPPER LOBES, DIMINISHED TO BILATERAL LOWER LOBES. S1 S2 HEART SOUNDS AUSCULTATED. PERIPHERAL IV TO RIGHT HAND WITH NS INFUSING AT 100 ML/HR. PULSES MODERATE X4. SKIN IS WARM AND PINK. CAP REFILL <3 SECONDS X4. ABD IS SOFT AND ROUNDED WITH ACTIVE BOWEL SOUNDS. SITTER AT BEDSIDE. PT ABLE TO AMBULATE TO RESTROOM WITH ASSISTANCE. WILL CONTINUE TO MONITOR.
[2019-04-02 21:19] VITALS: BP 128/90
--- NOTE | 2019-04-02 23:38 | NUR ---
PT WATCHING TELEVISION. SITTER AT BEDSIDE. WILL CONTINUE TO MONITOR.
--- NOTE | 2019-04-03 03:47 | NUR ---
Still no vacancy , will continue to make calls , Devon AGUILARchargeback analyst nurse made aware.
[2019-04-03 05:58] VITALS: BP 128/81
--- NOTE | 2019-04-03 07:40 | NUR ---
RECEIVED PT IN BED A/A/OX4 DENIES FORRESTER. RESP EVEN AND UNLABORED WITH CLEAR BS BILAT. DENIES ANY SOB/CP/PRESSURE. TRACE EDEMA TO BLE. ABD SOFT, NONTENDER WITH ACTIVE BS X4. DENIES ANY N/V. VOIDING FREELY AND AMBULATORY. ON 5150 HOLD DANGER TO SELF. WITH SITTER AT BEDSIDE CALL LIGHT IN REACH NEEDS ATTENDED TO.
--- NOTE | 2019-04-03 09:43 | NUR ---
Patient has been accepted to [facility] [address], Room #1504-B, under Dr. Ramirez. For report please call [phone].
[2019-04-03 09:57] VITALS: BP 138/93
[2019-04-03] MEDS ORDERED: REM15 PO (11:01)
[2019-04-03] MEDS ORDERED: ATIVAN0.5 M1 PO (12:27)
[2019-04-03] MEDS ORDERED: GABAPENTIN100 M2 PO (12:27)
[2019-04-03 13:09] VITALS: BP 138/93
--- NOTE | 2019-04-03 13:10 | NUR ---
PT MADE AWARE THAT A BED WAS FOUND AT [facility] IN [place] AND HAS PLANNED TRASFER SCHEDULED AT ABOUT 3 PM. PT VOICED CONCERN OVER HOW SHE WOULD GET BACK. MADE AWARE THAT ONCE REPORT IS CALLED IN I WILL NOTIFY THEM OF HER CONCERN. PT APPEARS ANXIOUS FIVEN LIBRIUM DOSE DUE. CALL LIGHT IN REACH. SITTER AT BEDSIDE.
--- NOTE | 2019-04-03 14:28 | NUR ---
REVIEWED TRANSFER INSTRUCTIONS TO PT. MADE AWARE REPORT WAS GIVEN AND CONCERN OVER HOW SHE WILL MAKE BACK TO [place] WAS ADDRESS WITH RECEIVING FACILITY D/T PT'S CONCERNS ABOUT BEING STANDED IN [place]. IV D/C'D AT THIS TIME. CATHETER INTACT. PT REFUSED TO SIGN FORMS, STATED SHE WOULD ONLY SIGN IF THEY WERE D/C HOME INSTRUCTIONS. PT PROVIDED WITH TRANSFER DISPOSABLE GOWN TO WEAR AND MADE AWARE OF INSULATION INSTALLER TIME WITH IN 1HR. SITTER AT BEDSIDE AWARE.
--- NOTE | 2019-04-03 15:20 | NUR ---
[facility] HERE TO [facility] PT, WHEN THEY ARRIVED PT VERBALIZED THAT SHE DID NOT WANT TO GO TO THAT PARTICULAR FACILITY AND REFUSED TO LEAVE WITH [facility]. CM WAS CALLED AND MARIO IS AT BEDSIDE AT THIS TIME SPEAKING WITH PT REGARDING TRANSFER. AWAITING FURTHER INSTRUCTIONS.
--- NOTE | 2019-04-03 15:55 | NUR ---
PT SPOKE WITH CM MANAGER FOREIGN REFGARDING CONCERNS. PT MADE AWARE SHE IS ON AN ACTIVE HOLD AND THAT THE DRRanjan COULD NOT RE-EVALUATE HER AT THIS TIME TO CLEAR HER AND SHE WOULD HAVE TO GO TO FACILITY WITH OPEN BED ORDERED BY PSYCH FOR INPATIENT [place]. PT AFTER SOME ARGUING WITH CM AGREED TO LEAVE WITH [facility]. PT WAS PROVIDED WITH [employer] PASSES REQUESTED TO HELP HER GET BACK TO [place] WHERE SHE RESIDES WITH FRIENDS. PT LEFT VIA [facility] FREE OF ANY APPARENT DISTRESS.
== END 2019-04-03 15:54 | DRG 775 ==
LOC: ED 13:47 → MU 15:52
PROVIDERS: Emergency Medicine; ADMIT General Practice
DX: F10.129 Alcohol abuse with intoxication, unspecified (principal); G92 Toxic encephalopathy; E44.0 Moderate protein-calorie malnutrition; R45.851 Suicidal ideations; F41.1 Generalized anxiety disorder; F32.9 Major depressive disorder, single episode, unspecified; D64.9 Anemia, unspecified; Z59.0 Homelessness; Z91.19 Patient's noncompliance with other medical treatment and regimen
CPT/HCPCS: 83880; 90732; G0378; G0480; J2060; J7030; Q0092; Q0162

== ENCOUNTER 2019-05-10 06:50 | Emergency (ER) | payer OTHER ==
[~2019-05-10] VITALS: Ht 167.6 cm; Wt 86.2 kg
[~2019-05-10 06:50] MED LIST changes: +ATIVAN0.5 M1; +ATIVAN0.5 M1 PO; +GABAPENTIN100 M2; +GABAPENTIN100 M2 PO; +REM15 PO
[2019-05-10 06:58] VITALS: Ht 167.6 cm; Wt 86.2 kg
[2019-05-10 07:50] LABS: CALCIUM 8.9 mg/dL (8.5-10.1); CARBON DIOXIDE 20.5 mmol/L (21-32); CHLORIDE SERUM 109 mmol/L (98-107); CREATININE SERUM 0.9 mg/dL (0.6-1.0); GFR1 > 60 mL/min; GLUCOSE SERUM 104 mg/dL (74-106); POTASSIUM SERUM 4.1 mmol/L (3.5-5.1); SODIUM SERUM 143 mmol/L (136-145)
[2019-05-10 07:52] LABS: BASOPHIL % 0.5 % (0-2); PLATELET COUNT 280 x10^3mcL (130-400)
[2019-05-10 07:55] LABS: ALBUMIN 3.3 g/dL (3.4-5.0); ALKALINE PHOSPHATASE 110 U/L (46-116); ALT/SGPT 30 U/L (14-59); AMYLASE 52 U/L (25-115); AST/SGOT 23 U/L (15-37); BILIRUBIN TOTAL 0.1 mg/dL (0.20-1.00); LIPASE 229 IU/L (73-393); TOTAL PROTEIN, SERUM 7.2 g/dL (6.4-8.2)
[2019-05-10 08:02] LABS: RED CELL DISTRIBUTION WIDTH 18.1 % (11.5-14.5)
[2019-05-10 09:53] LABS: AMPHETAMINE QUAL UR NONE DETECTED (See below)
[2019-05-10 13:49] VITALS: BP 138/81
== END 2019-05-10 13:49 | disposition home or self-care (01) ==
LOC: ED 06:50
PROVIDERS: Specialist
DX: F41.1 Generalized anxiety disorder (principal); F10.20 Alcohol dependence, uncomplicated; Z88.0 Allergy status to penicillin; Z90.49 Acquired absence of other specified parts of digestive tract
CPT/HCPCS: G0480; J2060; J2405; J7030

== ENCOUNTER 2019-06-06 10:40 | Emergency (ER) | payer OTHER ==
[~2019-06-06] VITALS: Ht 170.2 cm; Wt 72.6 kg
[2019-06-06 10:55] VITALS: Ht 170.2 cm; Wt 72.6 kg
[2019-06-06 14:15] LABS: PLATELET COUNT 307 x10^3mcL (130-400)
[2019-06-06 14:17] LABS: BASOPHIL % 0 % (0-2)
[2019-06-06 14:39] LABS: BILIRUBIN TOTAL 0.1 mg/dL (0.20-1.00); CALCIUM 7.8 mg/dL (8.5-10.1); CARBON DIOXIDE 21.1 mmol/L (21-32); CREATININE SERUM 1.1 mg/dL (0.6-1.0); POTASSIUM SERUM 4.3 mmol/L (3.5-5.1); TOTAL PROTEIN, SERUM 7.2 g/dL (6.4-8.2)
[2019-06-06 14:41] LABS: ALBUMIN 3.2 g/dL (3.4-5.0)
[2019-06-06 18:04] LABS: AMPHETAMINE QUAL UR NONE DETECTED (See below)
[2019-06-06 19:32] VITALS: BP 118/79
== END 2019-06-06 20:30 | disposition short-term general hospital (02) ==
LOC: ED 10:40
PROVIDERS: Emergency Medicine
DX: S82.832A Other fracture of upper and lower end of left fibula, initial encounter for closed fracture (principal); S09.8XXA Other specified injuries of head, initial encounter; E11.9 Type 2 diabetes mellitus without complications; F32.9 Major depressive disorder, single episode, unspecified; F41.9 Anxiety disorder, unspecified; F10.129 Alcohol abuse with intoxication, unspecified; Z90.49 Acquired absence of other specified parts of digestive tract; Z86.2 Personal history of diseases of the blood and blood-forming organs and certain disorders involving the immune mechanism; Y04.8XXA Assault by other bodily force, initial encounter; Y93.89 Activity, other specified; Y92.89 Other specified places as the place of occurrence of the external cause; Y99.8 Other external cause status
CPT/HCPCS: 36415; G0480; Q0092

== ENCOUNTER 2019-08-04 15:08 | Emergency (ER) | payer OTHER ==
[~2019-08-04] VITALS: Ht 167.6 cm; Wt 95.3 kg
[2019-08-04 15:49] VITALS: Ht 167.6 cm; Wt 95.3 kg
[2019-08-04 19:05] VITALS: BP 97/63
== END 2019-08-04 19:05 | disposition home or self-care (01) ==
LOC: ED 15:08
DX: M25.572 Pain in left ankle and joints of left foot (principal); M79.672 Pain in left foot; E11.9 Type 2 diabetes mellitus without complications; F41.9 Anxiety disorder, unspecified; Z98.890 Other specified postprocedural states; Z88.0 Allergy status to penicillin; Z90.49 Acquired absence of other specified parts of digestive tract; W01.0XXA Fall on same level from slipping, tripping and stumbling without subsequent striking against object, initial encounter; Y93.89 Activity, other specified; Y92.091 Bathroom in other non-institutional residence as the place of occurrence of the external cause; Y99.8 Other external cause status
CPT/HCPCS: Q0092

== ENCOUNTER 2019-12-26 21:55 | Emergency (ER) | payer SELFPAY ==
[~2019-12-26] VITALS: Ht 167.6 cm; Wt 90.7 kg
[2019-12-26 22:04] VITALS: BP 111/70; Ht 167.6 cm; Wt 90.7 kg
[2019-12-27] MEDS ORDERED: TRAZODONE50 M1 PO (14:47)
[2019-12-27] MEDS ORDERED: IBU600 M2 PO (14:50)
[2019-12-27] MEDS ORDERED: DICLOFENAC SOD75 M1 PO (14:52)
[2019-12-27] MEDS ORDERED: HYDROXYZIN10 MG/5 M2 PO (14:53)
== END 2019-12-26 23:50 | disposition left against medical advice (07) ==
LOC: ED 21:55
DX: J18.9 Pneumonia, unspecified organism (principal); F10.239 Alcohol dependence with withdrawal, unspecified; E11.9 Type 2 diabetes mellitus without complications; Z90.49 Acquired absence of other specified parts of digestive tract; Z88.0 Allergy status to penicillin
CPT/HCPCS: 36415; 83880; 87804; Q0092

== ENCOUNTER 2019-12-27 10:32 | Inpatient (IN) | payer SELFPAY ==
[~2019-12-27] VITALS: Ht 167.6 cm; Wt 90.7 kg
[2019-12-27 10:34] VITALS: Ht 167.6 cm; Wt 90.7 kg
[2019-12-27 12:04] LABS: BASOPHIL % 0.2 % (0-2); PLATELET COUNT 177 x10^3mcL (130-400)
[2019-12-27 12:06] LABS: RED CELL DISTRIBUTION WIDTH 15.7 % (11.5-14.5)
[2019-12-27 12:40] LABS: ALBUMIN 2.6 g/dL (3.4-5.0); ALKALINE PHOSPHATASE 128 U/L (46-116); ALT/SGPT 39 U/L (14-59); AST/SGOT 41 U/L (15-37); BILIRUBIN TOTAL 0.13 mg/dL (0.20-1.00); CALCIUM 7.7 mg/dL (8.5-10.1); CARBON DIOXIDE 25.3 mmol/L (21-32); CHLORIDE SERUM 102 mmol/L (98-107); CREATININE SERUM 0.8 mg/dL (0.6-1.0); GFR1 > 60 mL/min; GLUCOSE SERUM 136 mg/dL (74-106); POTASSIUM SERUM 3.3 mmol/L (3.5-5.1); SODIUM SERUM 137 mmol/L (136-145); TOTAL PROTEIN, SERUM 6.2 g/dL (6.4-8.2)
[2019-12-27] MEDS ORDERED: TRAZODONE50 M1 PO (14:47)
[2019-12-27] MEDS ORDERED: IBU600 M2 PO (14:50)
[2019-12-27] MEDS ORDERED: DICLOFENAC SOD75 M1 PO (14:52)
[2019-12-27] MEDS ORDERED: HYDROXYZIN10 MG/5 M2 PO (14:53)
[2019-12-27 16:42] VITALS: BP 125/79
[2019-12-27 16:56] VITALS: BP 115/49
[2019-12-27 17:20] VITALS: BP 127/75
[2019-12-27 21:03] VITALS: BP 128/83
[2019-12-27 22:00] VITALS: BP 169/99
[2019-12-28 07:41] LABS: CALCIUM 7.4 mg/dL (8.5-10.1); CARBON DIOXIDE 32.4 mmol/L (21-32); CREATININE SERUM 1.1 mg/dL (0.6-1.0); MAGNESIUM 2.3 mg/dL (1.8-2.4); PHOSPHOROUS 2.6 mg/dL (2.5-4.9); POTASSIUM SERUM 3.9 mmol/L (3.5-5.1)
[2019-12-28 07:43] LABS: BASOPHIL % 0.3 % (0-2); PLATELET COUNT 159 x10^3mcL (130-400); RED CELL DISTRIBUTION WIDTH 15.8 % (11.5-14.5)
[2019-12-28 08:00] VITALS: BP 115/56
[2019-12-28 09:10] LABS: PLATELET COUNT 165 x10^3mcL (130-400)
[2019-12-28 09:34] LABS: RED CELL DISTRIBUTION WIDTH 16.2 % (11.5-14.5)
[2019-12-28 09:37] LABS: TOTAL IRON BINDING CAPACITY 263 ug/dL (250-450)
[2019-12-28 09:38] LABS: IRON 11 ug/dL (50-170)
[2019-12-28 10:04] LABS: RED BLOOD CELLS 3.83 M/mm3 (4.10-5.10)
[2019-12-28 11:00] VITALS: BP 113/76
[2019-12-28 11:39] LABS: BAND NEUTROPHIL 20 % (0-10); BASOPHIL 0 % (0-2); MONOCYTE 11 % (0-7); SEGMENTED NEUTROPHILS 50 % (37-75); rbc morphology (normal/abnorm) NORMAL (NORMAL)
[2019-12-28 11:40] LABS: PLATELET MORPHOLOGY LARGE PLATELET SEEN
[2019-12-28 13:42] LABS: microscopic required? NO
[2019-12-28 13:53] LABS: UA SPECIFIC GRAVITY >=1.030 (1.005-1.035); urine erythrocyte NEGATIVE (NEGATIVE)
[2019-12-28 14:04] LABS: AMPHETAMINE QUAL UR NONE DETECTED (See below)
[2019-12-28 18:04] VITALS: BP 120/70
[2019-12-28 21:21] VITALS: BP 140/94
[2019-12-29 05:48] VITALS: BP 116/61
[2019-12-29 06:34] LABS: BASOPHIL % 0.3 % (0-2); PLATELET COUNT 159 x10^3mcL (130-400)
[2019-12-29 06:56] LABS: RED CELL DISTRIBUTION WIDTH 16.3 % (11.5-14.5)
[2019-12-29 07:03] LABS: CALCIUM 8.1 mg/dL (8.5-10.1); CARBON DIOXIDE 27.5 mmol/L (21-32); CHLORIDE SERUM 110 mmol/L (98-107); CREATININE SERUM 0.9 mg/dL (0.6-1.0); GFR1 > 60 mL/min; GLUCOSE SERUM 115 mg/dL (74-106); PHOSPHOROUS 3.1 mg/dL (2.5-4.9); POTASSIUM SERUM 3.7 mmol/L (3.5-5.1); SODIUM SERUM 144 mmol/L (136-145)
[2019-12-29 09:20] VITALS: BP 125/75
[2019-12-29 12:22] VITALS: BP 149/99
[2019-12-29 18:04] VITALS: BP 139/94
[2019-12-29 20:00] VITALS: BP 139/92
[2019-12-30 05:52] VITALS: BP 145/95
[2019-12-30 06:50] LABS: BASOPHIL % 0.3 % (0-2); PLATELET COUNT 179 x10^3mcL (130-400)
[2019-12-30 06:59] LABS: CALCIUM 8.4 mg/dL (8.5-10.1); CARBON DIOXIDE 27.4 mmol/L (21-32); CHLORIDE SERUM 108 mmol/L (98-107); CREATININE SERUM 0.9 mg/dL (0.6-1.0); GFR1 > 60 mL/min; GLUCOSE SERUM 94 mg/dL (74-106); MAGNESIUM 1.9 mg/dL (1.8-2.4); POTASSIUM SERUM 4.1 mmol/L (3.5-5.1); SODIUM SERUM 143 mmol/L (136-145)
[2019-12-30 08:01] LABS: RED CELL DISTRIBUTION WIDTH 16.2 % (11.5-14.5)
[2019-12-30 08:59] VITALS: BP 121/80
[2019-12-30 12:19] VITALS: BP 151/96
[2019-12-30 16:30] VITALS: BP 156/102
[2019-12-30 20:00] VITALS: BP 141/86
[2019-12-31 06:10] VITALS: BP 152/80
[2019-12-31 06:15] LABS: BASOPHIL % 0.1 % (0-2); PLATELET COUNT 201 x10^3mcL (130-400)
[2019-12-31 06:35] LABS: RED CELL DISTRIBUTION WIDTH 16.4 % (11.5-14.5)
[2019-12-31 06:51] LABS: CALCIUM 8.5 mg/dL (8.5-10.1); CARBON DIOXIDE 27.3 mmol/L (21-32); CHLORIDE SERUM 105 mmol/L (98-107); GFR1 > 60 mL/min; GLUCOSE SERUM 97 mg/dL (74-106); MAGNESIUM 2.2 mg/dL (1.8-2.4); PHOSPHOROUS 4.5 mg/dL (2.5-4.9); POTASSIUM SERUM 4.3 mmol/L (3.5-5.1); SODIUM SERUM 141 mmol/L (136-145)
[2019-12-31 09:55] VITALS: BP 136/88
[2019-12-31 11:38] VITALS: BP 149/89
[2019-12-31 15:24] VITALS: BP 150/110
[2019-12-31 22:00] VITALS: BP 136/74
[2020-01-01 06:27] LABS: BASOPHIL % 0.2 % (0-2); PLATELET COUNT 255 x10^3mcL (130-400)
[2020-01-01 06:29] VITALS: BP 129/84
[2020-01-01 06:50] LABS: CALCIUM 9.1 mg/dL (8.5-10.1); CARBON DIOXIDE 25.8 mmol/L (21-32); CHLORIDE SERUM 105 mmol/L (98-107); GFR1 > 60 mL/min; GLUCOSE SERUM 171 mg/dL (74-106); MAGNESIUM 2.7 mg/dL (1.8-2.4); PHOSPHOROUS 3.5 mg/dL (2.5-4.9); POTASSIUM SERUM 4.8 mmol/L (3.5-5.1); SODIUM SERUM 138 mmol/L (136-145)
[2020-01-01 07:00] LABS: RED CELL DISTRIBUTION WIDTH 16.7 % (11.5-14.5)
[2020-01-01 09:00] VITALS: BP 141/94
[2020-01-01 13:13] VITALS: BP 140/96
[2020-01-01] MEDS ORDERED: LEVAQUIN750 MG PO (13:16)
[2020-01-01] MEDS ORDERED: FORTAMET500 M1 PO (13:17)
[2020-01-01 13:37] VITALS: BP 141/94
== END 2020-01-01 16:12 | disposition home or self-care (01) | DRG 177 ==
LOC: ED 10:32 → DU 14:36 → IC 14:36 → DU 15:44 → IC 22:11 → DU 12-28 14:49
PROVIDERS: Emergency Medicine; ADMIT Internal Medicine
DX: J69.0 Pneumonitis due to inhalation of food and vomit (principal); E43 Unspecified severe protein-calorie malnutrition; J96.01 Acute respiratory failure with hypoxia; E87.6 Hypokalemia; E11.9 Type 2 diabetes mellitus without complications; J44.9 Chronic obstructive pulmonary disease, unspecified; E83.51 Hypocalcemia; R74.0 Nonspecific elevation of levels of transaminase and lactic acid dehydrogenase [LDH]; F41.9 Anxiety disorder, unspecified; D63.8 Anemia in other chronic diseases classified elsewhere; E87.8 Other disorders of electrolyte and fluid balance, not elsewhere classified; F10.129 Alcohol abuse with intoxication, unspecified; F32.9 Major depressive disorder, single episode, unspecified; Y90.0 Blood alcohol level of less than 20 mg/100 ml; Z59.0 Homelessness; Z91.5 Personal history of self-harm; Z68.32 Body mass index [BMI] 32.0-32.9, adult; Z91.19 Patient's noncompliance with other medical treatment and regimen; Z79.1 Long term (current) use of non-steroidal anti-inflammatories (NSAID); Z79.899 Other long term (current) drug therapy; Z88.0 Allergy status to penicillin; Z82.49 Family history of ischemic heart disease and other diseases of the circulatory system; Z56.0 Unemployment, unspecified; Z71.41 Alcohol abuse counseling and surveillance of alcoholic
CPT/HCPCS: 36600; 82962; 83880; 85378; 97116-GP; G0378; G0480; J1644; J1956; J2060; J2920; J3370; J3475; J3490; J3535; J7030; J7050; Q0092

== ENCOUNTER 2020-01-10 09:52 | Emergency (ER) | payer MEDICAID ==
[~2020-01-10] VITALS: Ht 167.6 cm; Wt 90.7 kg
[~2020-01-10 09:52] MED LIST changes: +DICLOFENAC SOD75 M1 PO; +FORTAMET500 M1 PO; +HYDROXYZIN10 MG/5 M2 PO; +IBU600 M2 PO; +LEVAQUIN750 MG PO; +TRAZODONE50 M1 PO
[2020-01-10 09:54] VITALS: Ht 167.6 cm; Wt 90.7 kg
[2020-01-10 13:36] VITALS: BP 133/96
== END 2020-01-10 13:35 | disposition home or self-care (01) ==
LOC: ED 09:52
DX: J06.9 Acute upper respiratory infection, unspecified (principal); E11.9 Type 2 diabetes mellitus without complications; Z86.2 Personal history of diseases of the blood and blood-forming organs and certain disorders involving the immune mechanism; Z88.0 Allergy status to penicillin
CPT/HCPCS: 36600; Q0092; U0002

== ENCOUNTER 2020-02-12 23:31 | Emergency (ER) | payer MEDICAID ==
[~2020-02-12] VITALS: Ht 167.6 cm; Wt 127.0 kg
[2020-02-13 00:09] VITALS: Ht 167.6 cm; Wt 127.0 kg
[2020-02-13 00:49] LABS: CHLORIDE SERUM 102 mmol/L (98-107); CREATININE SERUM 0.9 mg/dL (0.6-1.0); GFR1 > 60 mL/min; SODIUM SERUM 144 mmol/L (136-145)
[2020-02-13 00:51] LABS: CALCIUM 8.5 mg/dL (8.5-10.1); CARBON DIOXIDE 23.7 mmol/L (21-32); GLUCOSE SERUM 97 mg/dL (74-106); POTASSIUM SERUM 3.4 mmol/L (3.5-5.1)
[2020-02-13 00:53] LABS: ALBUMIN 3.6 g/dL (3.4-5.0); BILIRUBIN TOTAL 0.6 mg/dL (0.20-1.00); TOTAL PROTEIN, SERUM 7.6 g/dL (6.4-8.2)
[2020-02-13 00:54] LABS: ALKALINE PHOSPHATASE 141 U/L (46-116); ALT/SGPT 154 U/L (14-59); AST/SGOT 439 U/L (15-37)
[2020-02-13 00:58] LABS: BASOPHIL % 0.5 % (0-2); PLATELET COUNT 140 x10^3mcL (130-400)
[2020-02-13 01:00] LABS: RED CELL DISTRIBUTION WIDTH 23.9 % (11.5-14.5)
[2020-02-13 07:00] VITALS: BP 118/83
== END 2020-02-13 07:00 | disposition home or self-care (01) ==
LOC: ED 23:31
PROVIDERS: Emergency Medicine
DX: R10.9 Unspecified abdominal pain (principal); F10.239 Alcohol dependence with withdrawal, unspecified; E11.9 Type 2 diabetes mellitus without complications; Z86.2 Personal history of diseases of the blood and blood-forming organs and certain disorders involving the immune mechanism; Y90.9 Presence of alcohol in blood, level not specified
CPT/HCPCS: J1885; J2060; J3475; J7030

== ENCOUNTER 2020-05-04 03:22 | Emergency (ER) | payer MEDICAID ==
[~2020-05-04] VITALS: Ht 167.6 cm; Wt 90.7 kg
[2020-05-04 03:25] VITALS: Ht 167.6 cm; Wt 90.7 kg
[2020-05-04 04:50] VITALS: BP 145/97
== END 2020-05-04 04:50 | disposition home or self-care (01) ==
LOC: ED 03:22
DX: M54.5 Low back pain (principal); R06.02 Shortness of breath; E11.9 Type 2 diabetes mellitus without complications; Z86.2 Personal history of diseases of the blood and blood-forming organs and certain disorders involving the immune mechanism; Z88.0 Allergy status to penicillin